=== PATIENT | female | born 1955 | race Caucasian/White ===

== ENCOUNTER 2021-05-30 17:03 | Observation (INO) | payer MEDICARE ==
[~2021-05-30] VITALS: Ht 157.5 cm; Wt 51.8 kg
--- NOTE | 2021-05-30 19:37 | NUR ---
PT AMBULATED TO RESTROOM INDEPENDENTLY. URINE SENT TO LAB.
[2021-05-31 00:32] VITALS: BP 153/67
[2021-05-31 01:33] LABS: BASOPHILS 0.3 % (0-2); EOSINOPHILS 1.2 % (0-7); HEMATOCRIT 36.7 % (36.0-48.0); HEMOGLOBIN 12.6 g/dL (12-16); LYMPHOCYTES 42.4 % (15-50); MCH 34.5 pg (26.0-34.0); MCHC 34.4 g/dL (31.0-37.0); MCV 100.5 fL (80.0-100.0); MEAN PLATELET VOLUME 8.3 fL (7.4-10.4); MONOCYTES 8.6 % (2-11); NEUTROPHILS 47.5 % (40-80); PLATELET COUNT 160 10x3/uL (130-400); RBC 3.65 10x6/uL (4.00-5.40); RDW 13.2 % (11.5-14.5); WBC 6.2 10x3/uL (4.8-10.8)
[2021-05-31 01:42] LABS: INR 1.23 (0.85-1.17); PROTIME 14.4 SECONDS (11.6-15.0)
[2021-05-31 01:43] LABS: APTT 31.5 SECONDS (22.8-39.4)
[2021-05-31 01:52] LABS: D-DIMER-QUANTITATIVE 5.18 ug/mLFEU (0.20-0.54)
[2021-05-31 02:11] LABS: ALBUMIN 2.9 g/dL (3.4-5.0); ALKALINE PHOSPHATASE 60 U/L (30-120); ALT (SGPT) 21 U/L (10-68); BILIRUBIN - TOTAL 0.86 mg/dL (0.2-1.3); CALC OSMOLALITY 273 mosm/kg (275-300); CARBON DIOXIDE 25.5 mmol/L (21.0-32.0); CHLORIDE - SERUM 104 mmol/L (98-107); CKMB 1.6 U/L (0.0-3.6); CREATINE KINASE 69 UL (21-215); CREATININE - SERUM 1.1 mg/dL (0.6-1.3); GLUCOSE 74 mg/dL (74-106); MAGNESIUM - SERUM 1.9 mg/dL (1.8-2.4); POTASSIUM - SERUM 3.6 mmol/L (3.5-5.1); PRO BNP 1694 pg/mL (0-125); PROTEIN - SERUM 5.8 g/dL (6.4-8.2); SODIUM 136 mmol/L (136-145); THYROID STIMULATING HORMONE 0.78 uIU/mL (0.36-3.74); TROPONIN-I < 0.017 ng/mL (0.000-0.060); UREA NITROGEN 20 mg/dL (7-18); eGFR NON AFRICAN AMERICAN 53 mL/min (90-120)
[2021-05-31 03:38] VITALS: BP 153/67; BMI 20.9
[2021-05-31 04:53] VITALS: BP 173/87
[2021-05-31 06:08] LABS: BASOPHILS 0.3 % (0-2); EOSINOPHILS 1.6 % (0-7); HEMATOCRIT 37.1 % (36.0-48.0); HEMOGLOBIN 12.6 g/dL (12-16); LYMPHOCYTES 41.9 % (15-50); MCH 34.8 pg (26.0-34.0); MCHC 34.1 g/dL (31.0-37.0); MEAN PLATELET VOLUME 8.1 fL (7.4-10.4); NEUTROPHILS 48.2 % (40-80); PLATELET COUNT 150 10x3/uL (130-400); RBC 3.64 10x6/uL (4.00-5.40); RDW 13.3 % (11.5-14.5)
[2021-05-31 06:54] LABS: ALBUMIN 2.9 g/dL (3.4-5.0); ALKALINE PHOSPHATASE 63 U/L (30-120); MAGNESIUM - SERUM 1.9 mg/dL (1.8-2.4); POTASSIUM - SERUM 3.5 mmol/L (3.5-5.1); PROTEIN - SERUM 5.6 g/dL (6.4-8.2); SODIUM 137 mmol/L (136-145); TROPONIN-I < 0.017 ng/mL (0.000-0.060)
[2021-05-31 07:43] LABS: ALT (SGPT) 22 U/L (10-68); BILIRUBIN - TOTAL 0.79 mg/dL (0.2-1.3); CALC OSMOLALITY 273 mosm/kg (275-300); CALCIUM 7.8 mg/dL (8.5-10.1); CARBON DIOXIDE 23.6 mmol/L (21.0-32.0); CHLORIDE - SERUM 103 mmol/L (98-107); CKMB 1.7 U/L (0.0-3.6); CREATINE KINASE 61 UL (21-215); UREA NITROGEN 19 mg/dL (7-18); eGFR NON AFRICAN AMERICAN 59 mL/min (90-120)
[2021-05-31 07:51] LABS: GLUCOSE 66 mg/dL (74-106)
[2021-05-31 08:18] VITALS: BP 158/78
[2021-05-31] MEDS ORDERED: NORVASC5 MG PO (08:37)
[2021-05-31] MEDS ORDERED: HYDRALAZINE HCL25 MG PO (08:38)
[2021-05-31] MEDS ORDERED: DONEPEZIL HCL10 MG PO (08:38)
[2021-05-31] MEDS ORDERED: COREG25 MG PO (08:38)
[2021-05-31] MEDS ORDERED: COZAAR50 MG PO (08:39)
[2021-05-31] MEDS ORDERED: LIPITOR10 MG PO (08:39)
[2021-05-31] MEDS ORDERED: CLARITIN 10 MG10 MG PO (08:40)
[2021-05-31] MEDS ORDERED: PAXIL30 MG PO (08:41)
[2021-05-31] MEDS ORDERED: K-DUR20 MEQ PO (08:41)
[2021-05-31] MEDS ORDERED: ATROVENT HFA12.9 GM INH (08:42)
[2021-05-31] MEDS ORDERED: CLONIDINE HCL0.1 MG PO (08:43)
[2021-05-31 09:24] LABS: UDS - AMPHET NEGATIVE QUAL (NEGATIVE); UDS - BARB NEGATIVE QUAL (NEGATIVE); UDS - BENZO NEGATIVE QUAL (NEGATIVE); UDS - COCAINE NEGATIVE QUAL (NEGATIVE); UDS - OPIATE NEGATIVE QUAL (NEGATIVE); UDS - PCP NEGATIVE QUAL (NEGATIVE); UDS - THC NEGATIVE QUAL (NEGATIVE)
[2021-05-31 09:28] LABS: BILIRUBIN NEGATIVE (NEGATIVE); KETONE 1+ mg/dL (< 1+); NITRITE NEGATIVE (NEGATIVE); PH 5.5 (5.0-8.0); SQUAMOUS EPITHELIAL 1 HPF (0-4); UROBILINOGEN NORMAL mg/dL (< 2); WHITE CELLS - URINE 1 HPF (0-4)
[2021-05-31 09:38] LABS: CKMB 1.7 U/L (0.0-3.6); CREATINE KINASE 64 UL (21-215); TROPONIN-I < 0.017 ng/mL (0.000-0.060)
[2021-05-31 11:20] VITALS: Ht 157.5 cm; Wt 51.8 kg
--- NOTE | 2021-05-31 13:28 | NUR ---
IV and telemetry dcd. DC plans given. Understanding voiced. Escorted to car by w/c.
--- NOTE | 2021-06-01 17:14 | MORECARE ---
CASE MANAGEMENT DISCHARGE SUMMARY PATIENT: DEWAYNE TAPIA UNIT: [id number] ADM DATE: 05/30/21 AGE: 66 : 57 SEX: F ROOM/BED: [facility]7 AUTHOR: SAL,DOC PHYSICIAN: REFERRING PHYSICIAN: REECE MOON MD DATE OF SERVICE: 06/01/21 Case Management Discharge Planning Summary DCP REVIEW SUMMARY ANTICIPATED D/C DATE: EXPECTED LOS : CASE STATUS: DCP Not started INITIAL REVIEW: 05/30/2021 INITIAL REVIEWER: Nenita Duran FINAL DISCHARGE DISPOSITION: : FINAL REVIEWER: FINAL REVIEW DATE: DCP [employer] QUESTION: ANSWER : PATIENT: DEWAYNE TAPIA ENCOUNTER: [id number] MEDICAL RECORD#: [id number] ADMISSION DATE: 05/30/2021 DISCHARGE DATE: 05/31/2021 ATTENDING MD: REECE MESA : AGE: 66 MARITAL STATUS: S DC PLAN ID: [id number] FACILITY: [facility] PRINTED ON: 06/01/21 17:14 CT All edits/amendments must be made on the electronic document DICTATION DATE: 06/01/211713 PARKS RECREATION DIRECTOR: DM 06/01/211713 RPT#: [id number] DC DATE:05/31/21 STATUS: DIS IN [place] [id number] [place] [address] END OF REPORT
== END 2021-05-31 13:29 | disposition home or self-care (01) ==
LOC: D.ER 17:03 → EDSEX 18:55 → D.M2 18:55 → OBSVTIME 18:55 → D.M2 05-31 13:29
PROVIDERS: ADMIT Emergency Medicine; ATTEND Emergency Medicine
DX: R55 Syncope and collapse (principal); I71.4 Abdominal aortic aneurysm, without rupture; I11.0 Hypertensive heart disease with heart failure; I50.9 Heart failure, unspecified; I25.10 Atherosclerotic heart disease of native coronary artery without angina pectoris; J44.9 Chronic obstructive pulmonary disease, unspecified; K21.9 Gastro-esophageal reflux disease without esophagitis